=== PATIENT | female | born 1985 | race Caucasian/White ===

== ENCOUNTER 2018-03-05 09:52 | Emergency (ER) | payer OTHER ==
[2018-03-05 10:25] VITALS: BP 120/77; PULSE 79; RESP 18; TEMP 98.3; O2SAT 99
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
== END 2018-03-05 10:29 | disposition home or self-care (01) ==
LOC: C.ER 09:52
DX: Z04.1 Encounter for examination and observation following transport accident (principal)